=== PATIENT | female | born 1960 | race Caucasian/White ===

== ENCOUNTER → 2024-03-02 08:32 | Outpatient (REF) | payer OTHER, SELFPAY | LOC: MRI 08:32 | PROVIDERS: ATTENDING PHYSICIAN Internal Medicine; FAMILY PHYSICIAN Internal Medicine | DX: H53.2 Diplopia (principal) | CPT/HCPCS: 70543; 70553; A9575 ==

== ENCOUNTER 2025-09-02 10:50 | Inpatient (IN) | payer OTHER, SELFPAY ==
--- NOTE | 2025-07-31 14:01 | CM ---
Addendum entered by Cassandra Dyson RN 08/02/25 12:26:
Demographics:confirmed
Living situation: alone
Support Person Post Operatively: Friend
History of
VN: No
SNF: No
Outpatient: After two weeks of home PT
Has patient purchased required equipment: CM encouraged patient to contact [employer] to assist with equipment purchase
PCP: active
Pharmacy: [facility]
Post Operative Discharge Plan: Plan for home with [facility].
Addendum entered by Cassanrda Dyson RN 08/02/25 11:51:
Returned patient call for orthopedic IA.
Original Note:
CM left message for orthopedic IA.
--- NOTE | 2025-08-02 12:28 | VNURNOTE ---
Addendum entered by Susan Esparza RN 09/03/25 12:38:
Home Health Liaison met with patient at bedside to discuss [facility] nurse/therapy, visits, schedule and homebound status. Patient is agreeable and understands that visits at home will be 2-3 x per week to assess and teach medical management.
Patient is aware that [facility] will contact them for start of care within a few days after discharge from . Provided contact number for [facility].
[facility] referral accepted in [facility].
Original Note:
chart reviewed. pt to receive [facility] services at home post op. [facility]. Will follow up w/pt after surgery.
[2025-08-09 11:33] LABS: Hematocrit 40.3 % (37.0-47.0); Hemoglobin 13.3 g/dL (12.0-16.0); Mean Corp Hgb Conc. 33.0 g/dL (33.0-37.0); Mean Corpuscular Volume 93.3 fL (81.0-99.0); Platelet Count 271 10^3/uL (130-400); Red Cell Dist. Width 12.2 % (11.5-14.5)
[2025-08-09 12:03] LABS: ALT (SGPT) 20 U/L (0-35); AST (SGOT) 20 U/L (14-36); Albumin 4.1 g/dl (3.5-5.0); Alkaline Phosphatase 67 U/L (38-126); Blood Urea Nitrogen 10 mg/dl (7-17); Calcium 9.2 mg/dl (8.4-10.2); Carbon Dioxide 30 mmol/L (22-30); Chloride 102 mmol/L (98-107); Glucose 83 mg/dl (70-99); Potassium 4.0 mmol/L (3.5-5.1); Sodium 136 mmol/L (135-145); Total Protein 6.7 g/dl (6.3-8.2); eGFR > 60.00
[2025-08-09 12:40] LABS: Glycohemoglobin (HgbA1c) 5.3 % (4.0-5.9)
[2025-08-09 13:48] VITALS: BMI 24.7
[2025-08-09 18:15] VITALS: BMI 24.7
[2025-09-02] VITALS (10 sets, daily range): BP systolic 101–140; BP diastolic 62–81; BMI 24.7
[2025-09-02] MEDS: TYLENOL 650 MG PO ×2 (11:37→19:21)
[2025-09-02] MEDS: NORMOSOL-R/PLASMALYTE-A 1000 IV ×2 (11:38→17:52)
--- NOTE | 2025-09-02 13:34 | W.PN.ORTHO ---
Today's Communication / Plan
-
d/c when stable
Assessment
.
Assessment:
NSAID-Ibuprofen 400mg bid w/ food + Tordol-+ GI ppx
Plan
.
Surgery / Date: R RANDOLPH Aponte 09/02/25
DVT Prophylaxis: Aspirin
Activity:
Out of bed.
PT/OT
Discharge Plan: Home w/ Outpatient PT
Vital Signs and Labs
.
Vital Signs and Labs:
Lab Results
08/09/25 09:46
08/09/25 09:46
Temp Pulse Resp BP Pulse Ox
97.5 F 78 18 130/74 98
09/02/25 11:32 09/02/25 11:32 09/02/25 11:32 09/02/25 11:32 09/02/25 11:32
--- NOTE | 2025-09-02 14:41 | W.DS.TRANS ---
DC Summary - [employer]
-
Discharge Instructions:
Sleep Apnea Risk Low
Discharge Diagnosis/Procedures R knee OA s/p R TKA w/ Dr Aponte 09/02/2025
Diet Regular
Additional Diets Adequate hydration, minimize opioids, and wear
TEDs stockings to prevent low blood pressure/
dizziness.
Activity As tolerated,With Walker
Driving Restrictions Not until seen by your Dr
Bathing Restrictions OK to Shower
Other Services PT,VN
Wound Care Dressing to be removed 1 week post-surgery.
Alisia to be removed at 2 week follow-up with
surgeon's office.
Instructions:
Stand-Alone Forms: Total Hip/Knee Replacement D/C
Changes to Home Medications: Yes
Discharge Medications:
DC Medications w/original date entered in [facility]
Maculapm 1 cap PO HS 08/07/25
Held on 09/02/25. Instructions: Resume on 09/10/25.
calcium 500 mg (as carbonate)-vitamin D3 10 mcg (400 unit) tablet (Calcium 500 + D) 1 tab PO DAILY 08/07/25
cyanocobalamin (vitamin B-12) 5,000 mcg sublingual tablet (Vitamin B-12) 5,000 mcg sublingual DAILY 08/07/25
multivitamin with minerals (Hair,Skin and Nails tablet) 1 tab PO Q48H 08/07/25
Held on 09/02/25. Instructions: Resume on 09/10/25.
omega 0-dxh-cqa-fish oil 900 mg-1,400 mg capsule,delayed release 1 cap PO DAILY 08/07/25
Held on 09/02/25. Instructions: Resume on 09/10/25.
vit C 250 mg-vit E 90 mg-zinc 40 mg-copper 1 aw-igyype-nyrgag capsule (PreserVision AREDS-2) 1 tab PO BID 08/07/25
Held on 09/02/25. Instructions: Resume on 09/10/25.
mupirocin 2 % topical ointment 1 applic topical BID infection prevention #1 tube 08/09/25
dexamethasone 4 mg tablet 4 mg PO BID Anti-inflammatory #5 tabs 08/14/25
famotidine 20 mg tablet (Pepcid) 20 mg PO HS #30 tabs 08/14/25
ondansetron HCl 4 mg tablet 4 mg PO Q6H PRN nausea and vomiting #30 tabs 08/14/25
oxycodone 5 mg tablet 5 - 10 mg (1 - 2 x 5 mg) PO Q6H PRN moderate-severe pain #30 tabs 08/21/25
acetaminophen 325 mg tablet (Tylenol) 650 mg (2 x 325 mg) PO QID #1 tab 09/02/25
aspirin 325 mg tablet 325 mg PO DAILY blood clot prevention #1 tab 09/02/25
docusate sodium 100 mg capsule (Colace) 100 mg PO BID stool softner #1 cap 09/02/25
gabapentin 100 mg tablet 300 mg (3 x 100 mg) PO HS #0 tabs 09/02/25
magnesium hydroxide 400 mg/5 mL oral suspension (Milk of Magnesia) 30 ml PO HS PRN constipation #1 mL 09/02/25
sennosides 8.6 mg tablet (Senokot) 17.2 mg (2 x 8.6 mg) PO BID laxative #2 tabs 09/02/25
Home Medication Changes
mupirocin 2 % topical ointment 1 applic topical BID infection prevention #1 tube 08/09/25
dexamethasone 4 mg tablet 4 mg PO BID Anti-inflammatory #5 tabs 08/14/25
famotidine 20 mg tablet (Pepcid) 20 mg PO HS #30 tabs 08/14/25
ondansetron HCl 4 mg tablet 4 mg PO Q6H PRN nausea and vomiting #30 tabs 08/14/25
oxycodone 5 mg tablet 5 - 10 mg (1 - 2 x 5 mg) PO Q6H PRN moderate-severe pain #30 tabs 08/21/25
acetaminophen 325 mg tablet (Tylenol) 650 mg (2 x 325 mg) PO QID #1 tab 09/02/25
aspirin 325 mg tablet 325 mg PO DAILY blood clot prevention #1 tab 09/02/25
docusate sodium 100 mg capsule (Colace) 100 mg PO BID stool softner #1 cap 09/02/25
gabapentin 100 mg tablet 300 mg (3 x 100 mg) PO HS #0 tabs 09/02/25
magnesium hydroxide 400 mg/5 mL oral suspension (Milk of Magnesia) 30 ml PO HS PRN constipation #1 mL 09/02/25
sennosides 8.6 mg tablet (Senokot) 17.2 mg (2 x 8.6 mg) PO BID laxative #2 tabs 09/02/25
Pending Results: No
[2025-09-02] MEDS: SUBLIMAZE 25 MCG IV (15:39)
[2025-09-02] MEDS: ROXICODONE 5 MG PO (16:39)
[2025-09-02] MEDS: ASPIRIN 325 MG PO (17:52)
[2025-09-02] MEDS: SENOKOT 17.2 MG PO (19:21)
[2025-09-02] MEDS: TORADOL 15 MG IV (19:21)
[2025-09-02] MEDS: COLACE 100 MG PO (19:21)
[2025-09-02] MEDS: DECADRON 4 MG IV (19:21)
[2025-09-02] MEDS: PEPCID 20 MG PO (21:34)
[2025-09-02] MEDS: NEURONTIN 300 MG PO (21:34)
[2025-09-02] MEDS: ANCEF 5 IV (21:34)
[2025-09-02] MEDS: BACTROBAN 2% OINTMENT 1 APPLIC NASAL (21:34)
[2025-09-03] MEDS: TYLENOL PO ×2 (00:10→11:36)
[2025-09-03 03:12] VITALS: BP 100/61
[2025-09-03] MEDS: TYLENOL 650 MG PO ×2 (04:41→08:24)
[2025-09-03] MEDS: ANCEF 5 IV (05:58)
[2025-09-03 08:15] VITALS: BP 94/66
--- NOTE | 2025-09-03 08:17 | CM ---
Chart reviewed and case making machine operator met with patient and plan is for home with visiting nurses, patient has selected [facility], patient reports she does not have transportation to outpatient therapy.
Plan; Home with [facility].
[2025-09-03] MEDS: SENOKOT 17.2 MG PO (08:23)
[2025-09-03] MEDS: COLACE 100 MG PO (08:23)
[2025-09-03] MEDS: BACTROBAN 2% OINTMENT 1 APPLIC NASAL (08:24)
[2025-09-03] MEDS: TORADOL 15 MG IV (08:24)
[2025-09-03] MEDS: DECADRON 4 MG IV (08:24)
[2025-09-03] MEDS: ASPIRIN 325 MG PO (08:24)
[2025-09-03 08:28] VITALS: BP 105/72; PULSE 75; O2SAT 99
[2025-09-03 11:33] VITALS: BP 132/67
--- NOTE | 2025-09-03 11:57 | W.PN.ORTHO ---
Today's Communication / Plan
-
d/c
Assessment
.
Distal Motor Intact: Yes
Dressing:
Clean, dry and intact.
Assessment:
Hypotensive POD#1-asymptomatic -dclined Midodrine--with BP recovered prior to d/c-advised to minimize opioid and hydrate at home to avoid orthostasis
NSAID-Ibuprofen 400mg bid w/ food + Tordol-+ GI ppx
Plan
.
Surgery / Date: R TKA Dr Aponte 09/02/25
DVT Prophylaxis: Aspirin
Activity:
Out of bed.
PT/OT
Discharge Plan: Home w/ VN
Subjective
.
.:
Patient resting comfortably.
Vital Signs and Labs
.
Vital Signs and Labs:
Lab Results
08/09/25 09:46
08/09/25 09:46
Temp Pulse Resp BP Pulse Ox
97.3 F 72 16 132/67 97
09/03/25 11:33 09/03/25 11:33 09/03/25 11:33 09/03/25 11:33 09/03/25 11:33
Non-invasive Hgb result: 15.4
Physical Exam
-
HEENT: No pallor, cyanosis, or jaundice. Throat clear.
NECK: Supple. No JVD.
RESPIRATORY: Lungs clear to auscultation.
CVS: S1, S2 normal. RRR.� No murmur, rub or gallop.
ABDOMEN: Soft, non-tender. No distension. BS+/normal.
EXTREMITIES: strength equal, no calf pain with palpation
FOREST ECOLOGIST: AOx3. No focal deficits. transformer maker grossly intact
== END 2025-09-03 12:51 | disposition home health service (06) | DRG 470 ==
LOC: 2 SOUTH 10:50
PROVIDERS: ADMITTING PHYSICIAN Specialist; FAMILY PHYSICIAN Internal Medicine
PROC: 0SRC0J9 Replacement of Right Knee Joint with Synthetic Substitute, Cemented, Open Approach (ICD-10-PCS; 2025-09-02)
DX: M17.11 Unilateral primary osteoarthritis, right knee (principal); I95.81 Postprocedural hypotension; M48.061 Spinal stenosis, lumbar region without neurogenic claudication; M54.16 Radiculopathy, lumbar region; M85.80 Other specified disorders of bone density and structure, unspecified site; Z59.82 Transportation insecurity; C44.92 Squamous cell carcinoma of skin, unspecified; Z87.891 Personal history of nicotine dependence; Z98.41 Cataract extraction status, right eye; Z98.42 Cataract extraction status, left eye; Z79.899 Other long term (current) drug therapy
CPT/HCPCS: 36415; 73560; 80053; 83036; 85027; 87070; 93005; 97110; 97116; 97162; 97166; 97530; 97535; C1713; C1776